=== PATIENT | male | born 1975 | race Caucasian/White ===

== ENCOUNTER 2017-11-19 17:13 | Emergency (ER) | payer BC, MEDICAID ==
[2017-11-19] MEDS ORDERED: Lidocaine 1% 30 ML SDV INJECT ONE (17:46)
[2017-11-19] MEDS ORDERED: Sulfamethoxazole/Trimethoprim 800-160 MG Tab PO ONE (17:50)
[2017-11-19] MEDS ORDERED: Acetaminophen/HYDROcodone 325-5 MG Tab PO ONE (18:21)
--- NOTE | 2017-11-19 18:27 | EDM.PDOC ---
Scribed by Gayatri Montoya 11/19/17 [id number] for Debby Fried NP ED HPI GENERAL MEDICAL PROBLEM - General Chief Complaint: Skin Complaint Stated Complaint: finger infection [phone] Time Seen by Provider: 11/19/17 17:41 Source of Information: Reports: Patient, RN, RN Notes Reviewed History Limitations: Reports: No Limitations - History of Present Illness INITIAL COMMENTS - FREE TEXT/NARRATIVE: Patient presents to ER with complaint of infected finger. Patient states sliver of wood has been progressively getting worse over 3 to 5 days(approximately) left pointer finger. Pain is 10/10. He has had fever,chills, dizziness and nausea. No vomiting or diarrhea. Onset: Gradual Duration: Getting Worse Location: Reports: Upper Extremity, Left Quality: Reports: Ache Severity: Moderate Improves with: Reports: None Worsens with: Reports: None Associated Symptoms: Reports: No Other Symptoms Left 2-Index finger Pain Score (Numeric/FACES): 10 - Related Data Allergies Allergy/AdvReac Type Severity Reaction Status Date / Time No Known Allergies Allergy Verified 11/19/17 17:29 Home Meds: Home Meds . [No Known Home Meds] 11/19/17 [History] Past Medical History Cardiovascular History: Reports: Hypertension Respiratory History: Reports: None Genitourinary History: Reports: None Psychiatric History: Reports: Anxiety, Depression - Past Surgical History GI Surgical History: Reports: Appendectomy Musculoskeletal Surgical History: Reports: Carpal Tunnel Social & Family History - Family History Family Medical History: Noncontributory - Tobacco Use Smoking Status *Q: Current Every Day Smoker Years of Tobacco use: 25 Packs/Tins Daily: 1 - Caffeine Use Caffeine Use: Reports: Coffee, Soda - Recreational Drug Use Recreational Drug Use: No ED ROS GENERAL - Review of Systems Review Of Systems: ROS reveals no pertinent complaints other than HPI. ED EXAM, SKIN/RASH Exam: See Below Exam Limited By: No Limitations General Appearance: Anxious Eye Exam: Bilateral Eye: Normal Inspection Ears: Normal External Exam, Normal Canal, Hearing Grossly Normal, Normal TMs Nose: Normal Inspection, Normal Mucosa, No Blood Throat/Mouth: Normal Inspection, Normal Lips, Normal Teeth, Normal Gums, Normal Oropharynx, Normal Voice, No Airway Compromise Head: Atraumatic, Normocephalic Neck: Normal Inspection, Supple, Non-Tender, Full Range of Motion Respiratory/Chest: No Respiratory Distress, Lungs Clear, Normal Breath Sounds, No Accessory Muscle Use, Chest Non-Tender Cardiovascular: Normal Peripheral Pulses, Regular Rate, Rhythm, No Edema, No Gallop, No JVD, No Murmur, No Rub GI/Abdominal: Normal Bowel Sounds, Soft, Non-Tender, No Organomegaly, No Distention, No Abnormal Bruit, No Mass (Male) Exam: Deferred Rectal (Males) Exam: Deferred Back Exam: Normal Inspection, Full Range of Motion, NT Extremities: Normal Inspection, Normal Range of Motion, Non-Tender, No Pedal Edema, Normal Capillary Refill Neurological: Alert, Oriented, CN II-XII Intact, Normal Cognition, Normal Gait, Normal Reflexes, No Motor/Sensory Deficits Psychiatric: Anxious Skin: Other (left finger swelling. Drainage of green/white infection. ) Lymphatic: No Adenopathy ED SKIN PROCEDURES - I&D Site: left index finger Skin Prep: Isopropyl Alcohol (Alcohol) Local Anesthesia: Lidocaine: 1% Plain Local Anesthetic Volume: 2cc Area Incised With: 11 Blade Drainage: Purulent, Bloody, Small Amount Probed to Break Up Loculations: Yes Packed With: None Complications: No Course - Vital Signs Last Recorded V/S: Last Vital Signs Temp 98.5 F 11/19/17 17:30 Pulse 86 11/19/17 17:30 Resp 16 11/19/17 17:30 BP 139/115 H 11/19/17 17:30 Pulse Ox 100 11/19/17 17:30 - Orders/Labs/Meds Orders: Active Orders 24 hr Category Date Time Status CULTURE WOUND [RM] Urgent Lab 11/19/17 17:47 Ordered Meds: Medications Discontinued Medications Generic Name Dose Route Start Last Admin Trade Name Freq PRN Reason Stop Dose Admin Hydrocodone Bitart/Acetaminophen 1 tab 11/19/17 18:21 11/19/17 18:24 [place] 325-5 Mg PO 11/19/17 18:22 1 tab ONETIME ONE Administration Lidocaine HCl 30 ml 11/19/17 17:46 11/19/17 17:57 Xylocaine-Mpf 1% INJECT 11/19/17 17:47 30 ml ONETIME ONE Administration Trimethoprim/Sulfamethoxazole 1 tab 11/19/17 17:50 11/19/17 17:57 Septra Ds PO 11/19/17 17:51 1 tab ONETIME ONE Administration Departure - Departure Time of Disposition: 18:22 Disposition: Home, Self-Care 01 Condition: Fair Clinical Impression: Skin infection - Discharge Information Instructions: Percutaneous Abscess Drain, Care After Forms: ED Department Discharge Additional Instructions: RX: Bactrim May use tylenol and/or ibuprofen as directed for pain Follow up with your primary care facility for recheck - My Orders Last 24 Hours: My Active Orders 11/19/17 17:47 CULTURE WOUND [RM] Urgent - Assessment/Plan Last 24 Hours: My Active Orders 11/19/17 17:47 CULTURE WOUND [RM] Urgent I have read and agree with the documentation that has been completed regarding this visit. By signing this record, I attest that the documentation was completed in my physical presence and is an accurate record of the encounter.
== END 2017-11-19 18:26 | disposition home or self-care (01) ==
LOC: DL.ED 17:13
DX: L08.9 Local infection of the skin and subcutaneous tissue, unspecified (principal); I10 Essential (primary) hypertension; F32.9 Major depressive disorder, single episode, unspecified; F17.210 Nicotine dependence, cigarettes, uncomplicated
CPT/HCPCS: 10060; 87070; 87077; 87186; 99283; A9270

== ENCOUNTER 2022-03-23 20:03 | Emergency (ER) | payer SELFPAY ==
[2022-03-23] MEDS ORDERED: Glucagon,Human Recombinant 1 MG Vial IM PRN (22:47)
[2022-03-23] MEDS ORDERED: Insulin Regular, Human 100 Units/ML 3 ML Vial IV ONE (22:47)
[2022-03-23] MEDS ORDERED: 50% Dextrose in Water 50 ML Syringe IVPUSH PRN (22:47)
[2022-03-23] MEDS ORDERED: Sodium Chloride 0.9% 1,000 ML IV ONE (23:00)
[2022-03-23 23:05] LABS: ANION GAP 16.8 mEq/L (7-13)
[2022-03-24] MEDS ORDERED: Ondansetron 4 MG/2 ML SDV IVPUSH ONE (01:42)
[2022-03-24] MEDS ORDERED: 50% Dextrose in Water 50 ML Syringe IVPUSH PRN (01:43)
[2022-03-24] MEDS ORDERED: Glucagon,Human Recombinant 1 MG Vial IM PRN (01:43)
[2022-03-24] MEDS ORDERED: Insulin Regular, Human 100 Units/ML 3 ML Vial IV ONE (01:43)
[2022-03-24] MEDS ORDERED: Sodium Chloride 0.9% 1,000 ML IV ONE (01:44)
[2022-03-24 05:11] LABS: HEMOGLOBIN A1C > 14.0 % (<5.7)
== END 2022-03-24 03:39 | disposition home or self-care (01) ==
LOC: DL.ED 20:03
DX: E11.65 Type 2 diabetes mellitus with hyperglycemia (principal); F19.10 Other psychoactive substance abuse, uncomplicated; I10 Essential (primary) hypertension; F17.210 Nicotine dependence, cigarettes, uncomplicated; Z79.899 Other long term (current) drug therapy
CPT/HCPCS: 36415; 80053; 82009; 82947; 83036; 83605; 85025; 87040; 96361; 96374; 99284; J1815; J2405; J7030

== ENCOUNTER 2022-04-12 15:43 | Emergency (ER) | payer BC ==
[2022-04-12] MEDS ORDERED: Sodium Chloride 0.9% 1,000 ML IV ONE (16:49)
[2022-04-12 16:53] LABS: ANION GAP 11.6 mEq/L (7-13); CHLORIDE,CL 91 mmol/L (98-107); SODIUM,NA 124 mmol/L (136-145)
[2022-04-12 16:54] LABS: ESTIMATED GFR 87 mL/min (>=60)
[2022-04-12] MEDS ORDERED: Insulin Regular, Human 100 Units/ML 3 ML Vial IV ONE (16:54)
[2022-04-12] MEDS ORDERED: 50% Dextrose in Water 50 ML Syringe IVPUSH PRN (16:54)
[2022-04-12] MEDS ORDERED: Glucagon,Human Recombinant 1 MG Vial IM PRN (16:54)
[2022-04-12] MEDS ORDERED: Magnesium Sulfate/Water 2 GM in Premix Bag 1 BAG IV ONE (16:56)
[2022-04-12 17:49] LABS: AMPHETAMINES,URINE NEGATIVE (NEGATIVE); BARBITURATES,URINE NEGATIVE (NEGATIVE); BENZODIAZEPINE,URINE NEGATIVE (NEGATIVE); MDMA (ECSTASY), URINE NEGATIVE (NEGATIVE); METHADONE,URINE NEGATIVE (NEGATIVE); METHAMPHETAMINES,URINE POSITIVE (NEGATIVE); OPIATES,URINE NEGATIVE (NEGATIVE); OXYCODONE,URINE NEGATIVE (NEGATIVE); PHENCYCLIDINE,URINE NEGATIVE (NEGATIVE); TCA,URINE NEGATIVE (NEGATIVE)
== END 2022-04-12 19:39 | disposition home or self-care (01) ==
LOC: DL.ED 15:43
DX: E11.65 Type 2 diabetes mellitus with hyperglycemia (principal); E83.42 Hypomagnesemia; F15.10 Other stimulant abuse, uncomplicated; F17.210 Nicotine dependence, cigarettes, uncomplicated; Z79.899 Other long term (current) drug therapy; Z90.49 Acquired absence of other specified parts of digestive tract; Z20.822 Contact with and (suspected) exposure to COVID-19
CPT/HCPCS: 36415; 80053; 80305; 80307; 81003; 82009; 82947; 83605; 83735; 85025; 86140; 87635; 96361; 96365; 96366; 99284; J1815; J3475; J7030; U0002

== ENCOUNTER 2024-09-01 16:08 | Emergency (ER) | payer MEDICAID, OTHER ==
[2024-09-01 16:40] LABS: BASOPHILS PERCENT AUTO 0.5 % (0.0-1.0); EOSINOPHILS PERCENT AUTO 2.9 % (1.0-3.0); HEMATOCRIT 40.5 % (40.0-54.0); HEMOGLOBIN 13.5 g/dL (14.0-18.0); LYMPHOCYTES PERCENT AUTO 29.3 % (20.5-50.1); MEAN CORPUSCULAR HGB CONC 33.3 g/dL (33.0-35.0); MONOCYTES PERCENT AUTO 8.5 % (2-8); NEUTROPHILS PERCENT AUTO 58.8 % (42.2-75.2); PLATELET COUNT,PLT 270 10^3/uL (150-450); WHITE BLOOD CELL COUNT,WBC 11.1 10^3/uL (5.0-10.0)
[2024-09-01] MEDS: Iopamidol 755 Mg/ML 100 ML Bottle IVPUSH ONE (16:44)
[2024-09-01 17:07] LABS: INR 0.9 (0.9-1.2); PROTHROMBIN TIME 9.8 SEC (9.0-12.0); PTT,PARTIAL THROMBOPLSTIN TIME 24.3 SEC (22.0-34.0)
[2024-09-01 17:08] LABS: A/G RATIO 1.1; ALANINE AMINOTRANSFERASE,ALT 22 U/L (16-63); ALBUMIN 3.8 g/dL (3.4-5.0); ALKALINE PHOSPHATASE 106 U/L (46-116); ANION GAP 19.5 mEq/L (7-13); ASPARTATE AMNIOTRANSFERASE,AST 14 U/L (15-37); BILIRUBIN TOTAL 0.3 mg/dL (0.2-1.0); BLOOD UREA NITROGEN,BUN 12 mg/dL (7-18); BUN/CREATININE RATIO 8.7 (No establ ref range); CALCIUM 9.6 mg/dL (8.5-10.1); CARBON DIOXIDE,CO2 23 mmol/L (21-32); CHLORIDE,CL 104 mmol/L (98-107); CREATININE 1.38 mg/dL (0.70-1.30); GLUCOSE RANDOM 148 mg/dL (70-99); MAGNESIUM 1.8 mg/dL (1.8-2.4); POTASSIUM,K 3.5 mmol/L (3.5-5.1); PROTEIN TOTAL,TP 7.3 g/dL (6.4-8.2); SODIUM,NA 143 mmol/L (136-145); TSH ULTRASENSITIVE 2.65 uIU/mL (0.36-3.74)
[2024-09-01 17:09] LABS: ESTIMATED GFR 64 mL/min (>=60); ETHANOL BLOOD MEDICAL < 3 mg/dL (0)
== END 2024-09-01 17:44 ==
LOC: DL.ED 16:08
DX: T75.4XXA Electrocution, initial encounter (principal); G51.0 Bell's palsy; Z02.79 Encounter for issue of other medical certificate; Z76.5 Malingerer [conscious simulation]; I10 Essential (primary) hypertension; E11.9 Type 2 diabetes mellitus without complications; Z90.49 Acquired absence of other specified parts of digestive tract
CPT/HCPCS: 36415; 70450; 70496; 72125; 80053; 80307; 82947; 83735; 84443; 84484; 85025; 85610; 85730; 93005; 93010; 99284; Q9967

== ENCOUNTER 2024-09-11 10:37 | Emergency (ER) | payer OTHER ==
[2024-09-11 10:59] LABS: BASOPHILS PERCENT AUTO 0.4 % (0.0-1.0); EOSINOPHILS PERCENT AUTO 1.7 % (1.0-3.0); HEMATOCRIT 43.5 % (40.0-54.0); HEMOGLOBIN 14.6 g/dL (14.0-18.0); LYMPHOCYTES PERCENT AUTO 27.8 % (20.5-50.1); MEAN CORPUSCULAR HEMOGLOBIN 27.1 pg (27.0-34.0); MEAN CORPUSCULAR HGB CONC 33.6 g/dL (33.0-35.0); MEAN CORPUSCULAR VOLUME 80.7 fL (80-100); MONOCYTES PERCENT AUTO 7.5 % (2-8); NEUTROPHILS PERCENT AUTO 62.6 % (42.2-75.2); PLATELET COUNT,PLT 270 10^3/uL (150-450); RED BLOOD CELL COUNT 5.39 10^6/uL (4.6-6.2); WHITE BLOOD CELL COUNT,WBC 12.1 10^3/uL (5.0-10.0)
[2024-09-11 11:21] LABS: A/G RATIO 1.1; ALBUMIN 3.9 g/dL (3.4-5.0); BILIRUBIN TOTAL 0.4 mg/dL (0.2-1.0); BUN/CREATININE RATIO 12.8 (No establ ref range); CALCIUM 9.4 mg/dL (8.5-10.1); CREATININE 1.25 mg/dL (0.70-1.30); EST CRCL DRUG DOSING (CG) 76.24 mL/min; PROTEIN TOTAL,TP 7.6 g/dL (6.4-8.2)
[2024-09-11 11:24] LABS: ANION GAP 13.9 mEq/L (7-13); POTASSIUM,K 3.9 mmol/L (3.5-5.1)
== END 2024-09-11 12:12 | disposition home or self-care (01) ==
LOC: DL.ED 10:37
DX: R29.810 Facial weakness (principal); I10 Essential (primary) hypertension; E11.9 Type 2 diabetes mellitus without complications; Z79.84 Long term (current) use of oral hypoglycemic drugs; Z79.899 Other long term (current) drug therapy
CPT/HCPCS: 36415; 80053; 84484; 85025; 93005; 93010; 99284; 99285